=== PATIENT | male | born 1980 | race Two or more races ===

== ENCOUNTER 2017-05-05 22:18 | Emergency (ER) | payer SELFPAY ==
[2017-05-05 22:22] VITALS: BP 147/89; PULSE 86; RESP 18; TEMP 36.7; O2SAT 96; BMI 25.7
[2017-05-05 22:39] LABS: Microscopic, Urine URINE MICROSCOPIC (MICROSCOPIC)
[2017-05-05 22:41] LABS: Appearance,Urine CLEAR (Clear); Bilirubin,Urine Negative (Negative); Blood, Urine Negative (Negative); Color,Urine YELLOW (Yellow); Glucose,Urine (UA) Negative (Negative); Ketones,Urine Negative (Negative); Leukocyte Esterase,Urine Negative (Negative); Nitrate,Urine Negative (Negative); Protein,Urine Negative (Negative); Specific Gravity, Urine <= 1.005 (1.005-1.030); Urobilinogen,Urine 0.2 EU/dl (0.2)
[2017-05-05 22:56] LABS: Amorphous Sediment,Urine 1+ /lpf
--- NOTE | 2017-05-05 23:54 | [facility].EDGENADL ---
ED Disposition Clinical Impression: Left groin pain Disposition: Home, Self-Care Condition on Discharge: Good Additional Instructions: Ibuprofen for pain. Return to the emergency department if any severe pain in the groin or testicle, any severe abdominal pain or vomiting. Return if any swelling of the scrotum or testicle, any fever or redness. Referrals: Matthieu Plasencia MD [Physician] - 3 days (Call Sunday for appointment) - Critical Care Critical Care Time: No Attestation: On 05/05/17, the high probability of a clinically significant, sudden or life threatening deterioration of the following system(s) required my full and direct attention, intervention and personal management. The time I documented below is in addition to time spent performing reported procedures but includes the following listed in this critical care notation. Medical Decision Making Vital Signs: 05/05/17 22:22 Temperature 98.1 F Temperature Source Oral Pulse Rate [Right Brachial] 86 Respiratory Rate 18 Blood Pressure [Right Arm] 147/89 Blood Pressure Mean [Right Arm] 108 Blood Pressure Source [Right Arm] Automatic Cuff Blood Pressure Position [Right Arm] Sitting 02 Sat by Pulse Oximetry 96 Oxygen Delivery Method Room Air - Lab Data Lab Results 05/05/17 22:35: Urine Color Yellow, Urine Appearance Clear, Urine pH 6.0, Ur Specific [place] <= 1.005, Urine Protein Negative, Urine Glucose (UA) Negative, Urine Ketones Negative, Urine Blood Negative, Urine Nitrate Negative, Urine Bilirubin Negative, Urine Urobilinogen 0.2, Ur Leukocyte Esterase Negative, Amorphous Sediment 1+ - Rebel Inquiry Pt receiving controlled substance: No Medical Decision Making Narrative: No hernias found. No masses. No signs of infection. No testicle tenderness at this time. Currently denies any pain. I am not suspicious of a testicular torsion at this time. Symptoms sound like a groin strain. He will be referred to primary care and urology for follow-up. General Adult HPI - General Chief complaint: PAIN Stated complaint: groin area pain Mode of Arrival: Family Vehicle Limitations: No Limitations Description of Symptoms (Recalled from ER Triage Doc. 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 He says it started when he was pushing a car that had stalled. He has continued to work but says that at times he will feel a pain that lasts for up to several days. He locates the pain as somewhat vague in his inguinal and groin area. He says sometimes when he walks he feels a twinge in his inguinal crease area. No swelling of the scrotum or testicle. No difficulty urinating. No hematuria. No fever. No vomiting. He says that he has the pain again for the past couple of days and therefore came into be evaluated. He has not previously been evaluated for this. His dimitri was worried about a hernia, although she has not seen any swelling. Currently says he has no pain, but when he moves he feels a little something in the inguinal area. - Related Data Allergies Allergy/AdvReac Type Severity Reaction Status Date / Time No Known Allergies Allergy Verified 05/05/17 22:33 [facility] History I have reviewed the patient's past medical history: Yes Medical History: Denies:: Cancer, Diabetes Mellitus Type 1, Diabetes Mellitus Type 2, MRSA Amputation: No Fractures: No - *Social History Smoking Status: Current every day smoker Tobacco Type: cigarettes Alcohol Intake: current Alcohol Intake Frequency:: 3 or more drinks per day - Psychiatric History Expresses thoughts of harming self/others: None Suicide Plan Description: No Plan ROS Obtained: Yes All systems reviewed & no additional complaints - Constitutional Constitutional: Denies fever(s) - Ge
[2017-05-06 00:42] VITALS: BP 128/72; PULSE 68; RESP 16; O2SAT 96
== END 2017-05-06 00:43 | disposition home or self-care (01) ==
PROVIDERS: Emergency Provider Emergency Medicine
DX: R10.30 Lower abdominal pain, unspecified (principal); F17.210 Nicotine dependence, cigarettes, uncomplicated
CPT/HCPCS: 81001; 99282